=== PATIENT | female | born 1990 | race Caucasian/White ===

== ENCOUNTER → 2017-07-23 | Outpatient (CLI) | payer BC ==
--- NOTE | 2017-07-23 13:42 | US ---
EXAMINATION TYPE: US pelvic complete DATE OF EXAM: 07/23/2017 COMPARISON: NONE CLINICAL HISTORY: Z97.5 Presence of (intrauterine) contraceptive dev. Pt states physician unable to f ind IUD strings on examination to remove IUD TECHNIQUE: Transabdominal (TA). Pt did not want TV at time of exam Date of LMP: Pt states unknown due to IUD EXAM MEASUREMENTS: Uterus: 10.5 x 3.8 x 4.8 cm Endometrial Stripe: 0.5 cm Right Ovary: 4.3 x 2.9 x 2.9 cm Left Ovary: 2.5 x 2.2 x 2.2 cm 1. Uterus: Anteverted wnl 2. Endometrium: wnl 3. Right Ovary: Cyst= 2.7 x 2.0 x 2.1 cm 4. Left Ovary: wnl 5. Bilateral Adnexa: wnl 6. Posterior cul-de-sac: wnl IUD visualized within endometrium IMPRESSION: 1. Echogenic focus within the fundus of uterus compatible with the patient's placed IUD.
== END | disposition home or self-care (01) ==
LOC: RADUSWWP 13:00
PROVIDERS: ATTEND Obstetrics & Gynecology
DX: Z30.431 Encounter for routine checking of intrauterine contraceptive device (principal)
CPT/HCPCS: 76856

== ENCOUNTER → 2017-08-13 | Outpatient (CLI) | payer BC ==
[2017-08-13 15:36] LABS: Basophils % (A) 0 %; Eosinophils # (A) 0.1 k/uL (0-0.7); Eosinophils % (A) 1 %; HCT 39.6 % (34.0-46.0); HGB 13.8 gm/dL (11.4-16.0); Lymphocytes # (A) 2.3 k/uL (1.0-4.8); Lymphocytes % (A) 25 %; MCH 31.8 pg (25.0-35.0); MCHC 34.8 g/dL (31.0-37.0); MCV 91.4 fL (80.0-100.0); Mean Platelet Volume 8.5; Monocytes # (A) 0.4 k/uL (0-1.0); Monocytes % (A) 4 %; Neutrophils # (A) 6.3 k/uL (1.3-7.7); Neutrophils % (A) 69 %; Platelet Count 212 k/uL (150-450); RBC 4.33 m/uL (3.80-5.40); RDW 13.1 % (11.5-15.5); WBC 9.2 k/uL (3.8-10.6)
== END | disposition home or self-care (01) ==
LOC: LABPAT 14:59
PROVIDERS: ATTEND Obstetrics & Gynecology
DX: Z01.812 Encounter for preprocedural laboratory examination (principal)
CPT/HCPCS: 36415; 85025

== ENCOUNTER 2017-08-24 06:35 | Day surgery (SDC) | payer BC ==
--- NOTE | 2017-08-23 16:03 | P.HPOB ---
History of Present Illness H&P Date: 08/23/17 Chief Complaint: Retained IUD 27 year old presents for D&C, hysteroscopy and removal of IUD. Review of Systems All systems: negative Constitutional: Denies chills, Denies fever Eyes: denies blurred vision, denies pain Ears, nose, mouth and throat: Denies headache, Denies sore throat Cardiovascular: Denies chest pain, Denies shortness of breath Respiratory: Denies cough Gastrointestinal: Denies abdominal pain, Denies diarrhea, Denies nausea, Denies vomiting Genitourinary: Denies dysuria, Denies hematuria Musculoskeletal: Denies myalgias Integumentary: Denies pruritus, Denies rash Neurological: Denies numbness, Denies weakness Psychiatric: Denies anxiety, Denies depression Endocrine: Denies fatigue, Denies weight change Past Medical History Past Medical History: Asthma, Musculoskeletal Disorder Additional Past Medical History / Comment(s): POSS ASTHMA TEEN. NERVE PAIN IN BACK SINCE EPIDURAL ANESTHESIA. MIRENA IUD IS "SHIFTED." History of Any Multi-Drug Resistant Organisms: None Reported Past Surgical History: Ear Surgery Additional Past Surgical History / Comment(s): BMI. Past Anesthesia/Blood Transfusion Reactions: Previous Problems w/ Anesthesia Additional Past Anesthesia/Blood Transfusion Reaction / Comment(s): NERVE PAIN IN BACK SINCE EPIDURAL FOR CHILDBIRTH Smoking Status: Former smoker - Past Family History Mother Family Medical History: No Reported History Medications and Allergies Home Medications Medication Instructions Recorded Confirmed Type Acetaminophen [Tylenol Extra 500 - 1,000 mg PO Q6H PRN 08/20/17 08/20/17 History Strength] Levonorgestrel [Mirena] 1 implant VAGINAL [id number] 08/20/17 08/20/17 History Allergies Allergy/AdvReac Type Severity Reaction Status Date / Time carrot Allergy Rash/Hives Verified 08/20/17 12:13 Exam Osteopathic Statement: *. No significant issues noted on an osteopathic structural exam other than those noted in the History and Physical/Consult. Heart: RRR Lungs: CTAB Abdomen: soft, nontender Extremeties: neg kristine's Assessment and Plan (1) IUD strings lost Status: Acute Code(s): T83.32XA - DISPLACEMENT OF INTRAUTERINE CONTRACEPTIVE DEVICE, INIT SNOMED Code(s): 793374243 Plan: 1. D&C hysteroscopy and removal of IUD
[~2017-08-24 06:35] MED LIST: DEXAMETHASONE SOD PHOSPHATE 10 MG/ML 1 ML VIAL IV ONE; LACTATED RINGERS 1,000 ML IV SCH; MIDAZOLAM 2 MG/2 ML VIAL IV PRN; ONDANSETRON ODT 4 MG TAB PO ONE; Pre Op ABX Message 1 EACH MISC MISCELLANE ONE; SCOPOLAMINE 1.5MG/72HR PATCH TRANSDERM ONE; fentaNYL (PF) 50 MCG/ML 2 ML AMP IV PRN
[2017-08-24 07:10] VITALS: RESP 16
[2017-08-24] MEDS ORDERED: LIDOCAINE 1% 20 ML VIAL (10MG/ML) FOR IV START INTRADERMA ONE (07:10)
[2017-08-24] MEDS ORDERED: ONDANSETRON 4 MG/2 ML VIAL IVP ONE (07:11)
[2017-08-24] MEDS ORDERED: PROPOFOL 10 MG/ML 20 ML VIAL IV ONE (07:58)
[2017-08-24] MEDS ORDERED: MIDAZOLAM 2 MG/2 ML VIAL ONE (07:58)
[2017-08-24] MEDS ORDERED: KETOROLAC 30 MG/ML 1 ML VIAL ONE (07:58)
[2017-08-24] MEDS ORDERED: LIDOCAINE 1% INJ 10MG/ML (20 ML MDV) ONE (07:58)
[2017-08-24] MEDS ORDERED: fentaNYL (PF) 50 MCG/ML 2 ML AMP ONE (07:58)
--- NOTE | 2017-08-24 08:20 | P.OP ---
Date of Procedure: 08/24/17 Preoperative Diagnosis: 1. retained IUD Postoperative Diagnosis: 1. retained IUD Procedure(s) Performed: D&C hysteroscopy and removal of IUD Anesthesia: MAC Surgeon: Bella Lane Estimated Blood Loss (ml): 2 IV fluids (ml): 400 Urine output (ml): 40 Pathology: other (endometrial currettings) Condition: stable Disposition: PACU Operative Findings: Mirena IUD found in uterus and removed easily. Description of Procedure: Patient is a the operating room where general anesthesia was obtained without difficulty. She is prepped and draped in normal sterile fashion dorsal lithotomy position, legs placed in candycane stirrups. There was drained of all urine. Weighted speculum placed in the vagina and the anterior lip the cervix was grasped with single-tooth tenaculum. The cervix was dilated to #8 Hegar dilator. Hysteroscopy was performed to the Mirena IUD was seen. Sharp curet was gently used to obtain endometrial curettings and remove the IUD. The uterus was sounded to 11 cm. All instruments removed from the uterus and vagina. Patient procedure well, sponge and instrument counts are correct 2 and she was taken to recovery in stable condition.
[2017-08-24 08:36] VITALS: TEMP 97
[2017-08-24 09:59] VITALS: BP 126/77; PULSE 78
== END 2017-08-24 10:12 | disposition home or self-care (01) ==
LOC: OR 06:35
PROVIDERS: ATTEND Obstetrics & Gynecology
DX: T83.89XA Other specified complication of genitourinary prosthetic devices, implants and grafts, initial encounter (principal); N71.1 Chronic inflammatory disease of uterus; J45.909 Unspecified asthma, uncomplicated; Z87.891 Personal history of nicotine dependence; Z91.018 Allergy to other foods
CPT/HCPCS: 81025; 88305; 58558; 58301; J2250; J1100; J2405; J2001; J3010; J1885; J2704